=== PATIENT | male | born 1950 | race Caucasian/White ===

== ENCOUNTER 2023-07-10 09:51 | Day surgery (SDC) | payer MEDICARE, SELFPAY ==
[2023-07-10 10:08] VITALS: BP 153/95; PULSE 67; RESP 16; TEMP 36.3; O2SAT 99
[2023-07-10] MEDS: SODIUM CHLORIDE 0.9 % (FLUSH) 10 ML SYRINGE IVF (10:26)
[2023-07-10] MEDS: LACTATED RINGERS 1000 ML 1,000 ML 100 ML IV (10:27)
[2023-07-10 10:29] VITALS: BMI 32.9
[2023-07-10] MEDS: TETRACAINE 0.5% OPHTH 1 DROP EYE-LEFT (10:40)
[2023-07-10] MEDS: TETRACAINE 0.5% OPHTH 1 DROP EYE-RIGHT (10:40)
[2023-07-10] MEDS: TETRACAINE 0.5% OPHTH 2 DROP EYE-BOTH (11:06)
[2023-07-10] MEDS: BUPIVACAINE 0.5 %/EPI 1:200K 5 ML INJECTION (11:14)
--- NOTE | 2023-07-10 11:39 | P.ANES_ITS ---
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
--- NOTE | 2023-07-10 12:10 | W.PM.OPTPROC ---
Procedure Note Date of procedure: 07/10/23 Will [facility] bill your pro fee for this procedure?: Yes Procedure Description: SURGEON: Mary Hickman MD PREOPERATIVE DIAGNOSIS: Dermatochalasis, bilateral upper eyelids. POSTOPERATIVE DIAGNOSIS: Dermatochalasis, bilateral upper eyelids. NAME OF OPERATION: Bilateral upper eyelid blepharoplasty. ANESTHESIA: Local monitored anesthesia care. ESTIMATED BLOOD LOSS: Less than 2 cc. COMPLICATIONS: None. IMPLANTS: None. INDICATIONS: The patient is seen today for bilateral upper eyelid blepharoplasty. The patient complains of upper eyelids interfering with vision. I reviewed the visual cuevas and facial photographs. Surgery was indicated for functional improvement of vision. The risks, benefits and alternatives were discussed pre-operatively. The risks included pain, infection, bleeding, poor cosmetic result, scarring, asymmetry, need for further treatment including surgery, inability to close lids, dry eyes, decreased vision, loss of vision and loss of eye. The benefits included improvement of symptoms. The alternative was observation and no surgery. All questions were answered to the patient's satisfaction, and the patient elected to proceed with the bilateral upper eyelid blepharoplasty. Informed consent was obtained. PROCEDURE: In a sitting position, the upper eyelid crease was marked with a marking pen, and the pinch technique was used to determine the amount of upper eyelid skin to be excised. A calipers was used to measure for symmetry and to confirm an appropriate amount of remaining skin. The patient was taken to the operating room. 4 cc of anesthetic was injected subcutaneously along the full extent of each upper eyelid. This anesthetic was made with 1:1 of 2% lidocaine with epinephrine and 0.5% bupivacaine. Both eyes were prepped and draped in the usual sterile ophthalmic fashion. The following was performed on both the right and left upper eyelid: A #15 blade was used to incise the skin. Bishops and Liliam scissors were used to excise the skin and orbicularis muscle. Handheld cautery was used to achieve hemostasis. The eyelids were examined for symmetry. The skin was closed with a running 6-0 nylon suture. Erythromycin ointment was applied to the wounds. The patient tolerated the procedure well. DISPOSITION: The patient was sent to the recovery room and discharged to home in stable condition. The patient was given my postoperative instructions handout. The patient was told to ice as directed. The patient will apply erythromycin ophthalmic ointment to the eyelids three times a day until the sutures are removed, then for another three days. The patient will follow up in one week for suture removal or sooner as needed. The patient was instructed to call me or go to the emergency department with any sudden change, including dramatic loss of vision, excessive bleeding, redness or discharge from the incisions, or severe pain in the eye.
[2023-07-10 12:16] VITALS: BP 143/87; PULSE 65; RESP 16; TEMP 36.6; O2SAT 97
[2023-07-10 12:28] VITALS: BP 142/80; PULSE 66; RESP 16; O2SAT 97
[2023-07-10 12:44] VITALS: PULSE 67; RESP 16; O2SAT 97
--- NOTE | 2023-07-10 12:55 | W.ANESCHARGE ---
Anesthesia Charges Start Date/Time Anesthesia Start Date: 07/10/23 Anesthesia Start Time: 11:06 Stop Date/Time Anesthesia Stop Date: 07/10/23 Anesthesia Stop Time: 12:15 Summary Extremes of Age - Over 70 or under 1: MDA
== END 2023-07-10 12:58 | disposition home or self-care (01) ==
PROVIDERS: PCP Surgery; Visit Provider Ophthalmology
PROC: (CPT 15823; principal; 2023-07-10 10:00)
DX: H02.831 Dermatochalasis of right upper eyelid (principal); H02.834 Dermatochalasis of left upper eyelid; H53.8 Other visual disturbances
CPT/HCPCS: 15823; 00103; 82962; 99100; A9270; J2704; J3490; J7120

== ENCOUNTER 2024-03-06 08:46 | Outpatient (CLI) | payer MEDICARE, SELFPAY ==
--- OUTSIDE RECORDS SUMMARY | 2024-03-06 08:49 | XMS_ITS | Continuity of Care Document ---
Author Organization [place] - [facility], _[facility]aro Address [address] [place] [address] Care Team Providers Care Brake Adjuster Name Role Phone [facility] Primary Care Provider Assessment No assessment recorded. Plan of Treatment Reminders Order Date Submit Date Provider Last Modified By Organization Details Last Modified Time Details Appointments None recorded. Lab PSA, serum or plasma 2023 024 [email or web address] _lazaro, [facility] [place], [address], 14:15:39 Referral None recorded. Procedures None recorded. Surgeries None recorded. Imaging MRI, prostate, w/wo contrast 2023 024 [facility], [address] [place], [address], 14:40:33 Medication Orders None recorded. Patient TargetsNo targets recorded. Patient InstructionsNo instructions recorded. Reason for Referral None Reported. Results Created Date Observation Date Name Description Value Unit Range Abnormal Flag LastModifiedBy Organization Detail LastModifiedTime 03/02/20 24 03/02/2024 PSA, serum or plasm a PSA 12.0 ng/mL 0-4.0 NG/mL Not Available [facility] [address] [place], [address], 03/02/2024 13:54:12 Result Notes None recorded. Procedures Surgical History Date Name Laterality Status Provider Name and Address Organization Details Recorded Time PSA RESULTS completed Larisa meredith [facility] 03/02/2024 14:15:01 Bladder Scan completed Larisa meredith [facility] 03/02/2024 14:03:19 Imaging Results None recorded. Procedure Notes None recorded. Medical Equipment None Reported. Allergies Allergen ID Allergen Name Allergen Category Reaction Reaction Severity Criticality Documentation Date Start Date Code Code System Note Provider Name and Address Organization Details Recorded Time 039682 ciproflox acin medicatio n Not available Not available Not available 03/02/2024 2551 RxNorm Larisa meredith [facility] 4 14:03:59 Medications Name Sig Start Date Stop Date Status Note LastModified by Organization Details LastModified Time losartan 50 mg tablet TAKE 1 TABLET (50 MG) BY MOUTH ONCE DAILY. active Not Available Not Available No t Available atorvastati n 20 mg tablet TAKE 1 TABLET (20 MG) BY MOUTH AT BEDTIME. active Not Available Not Available No t Available betamethaso ne, augmented 0.05 % topical cream APPLY TOPICALLY TO AFFECTED AREA(S) TWO TIMES DAILY. DON''T USE FOR MORE THAN 2 WEEKS STRAIGHT ON ANY ONE AREA active Not Available Not Available No t Available atenolol 50 mg-chlortha lidone 25 mg tablet TAKE 1 TABLET BY MOUTH ONCE DAILY. active Not Available Not Available No t Available allopurinol 100 mg tablet TAKE 2 TABLETS (200 MG) BY MOUTH ONCE DAILY. active Not Available Not Available No t Available lancets active Not Available Not Avail able Not Available tamsulosin 0.4 mg capsule TAKE 1 CAPSULE (0.4 MG) BY MOUTH ONCE DAILY AFTER A MEAL. active Not Available Not Available No t Available glipizide ER 2.5 mg tablet, extended release 24 hr TAKE 1 TABLET BY MOUTH ONCE DAILY BEFORE A MEAL. active Not Available Not Available No t Available metformin 1,000 mg tablet TAKE 1 TABLET (1,000 MG) BY MOUTH TWO TIMES DAILY WITH MEALS. active Not Available Not Available No t Available albuterol sulfate HFA 90 mcg/actuati on aerosol inhaler INHALE 1-2 PUFFS BY MOUTH EVERY 4 HOURS IF NEEDED (COUGH). active Not Available Not Available No t Available sulindac 200 mg tablet Take 1 tablet twice a day by oral route. active Not Available Not Available No t Available Co Q-10 10 mg capsule Take by oral route. active Not Available Not Available No t Available Contour Next Test Strips TEST TWICE DAILY 2023 active Not Available Not Available Not Windy jaimes Paxlovid 300 mg (150 mg x 2)-100 mg tablets in a dose pack TAKE 2 NIRMATREL VIR 150 MG PINK-OVAL TABLETS AND 1 RITONAVIR 100 MG WHITE-OVA L TABLET TOGETHER TWICE DAILY FOR 5 DAYS. DATE OF SYMPTOM 03/02 completed Not Available Not Available Not Available Vitals Date Recorded Body height Body mass index (BMI) Body weight Provider Name and Address Organization Details Last Updated DateTime 03/02/2024 177.8 cm 31.6 kg/m2 24852.32 g Larisa Melchor [facility] 03/02/2024 14:02:39 Social History Question Answer Notes LastModified by Organizat ion Details LastModified Time Tobacco Smoking Status Former Smoker Larisa meredith [facility] 03/02/2024 14:05:03 What Is Your Level Of Alcohol Consumption? Moderate Information not available 03/02/2024 What Is Your Level Of Caffeine Consumption? Moderate Information not available 03/02/2024 When Did You Quit Smoking? 16+yearssincel astcigarette Information not available 03/02/2024 What Was The Date Of Your Most Recent Tobacco Screening? 03/02/2024 Information not available 03/02/2024 Sex: Unknown Functional Status None recorded. Mental Status None recorded. Family History Nothing Reported. Medical History No medical history recorded. Immunizations Vaccine Type Date Status Provider Name and Address Organization Details Recorded Time Influenza, adjuvanted, trivalent, PF 05/30/2018 completed Larisa meredith [facility] 03/02/2024 13:55:00 Influenza, adjuvanted, trivalent, PF 06/05/2019 completed Larisa meredith [facility] 03/02/2024 13:55:00 Influenza, adjuvanted, trivalent, PF 06/26/2017 completed Larisa meredith [facility] 03/02/2024 13:55:00 zoster recombinant 11/03/2019 completed Larisa meredith [facility] 03/02/2024 13:55:00 zoster recombinant 02/03/2020 completed Larisa Gray whittaker null, [facility] 03/02/2024 13:55:00 Influenza, high-dose, quadrivalent, PF 05/27/2023 completed Larisa Chanceen null, [facility] 03/02/2024 13:55:00 Influenza, high-dose, quadrivalent, PF 06/19/2022 completed Larisa Chanceen null, [facility] 03/02/2024 13:55:00 Influenza, adjuvanted, quadrivalent, PF 05/19/2021 completed Larisa Ronkelvinen null, [facility] 03/02/2024 13:55:00 Influenza, adjuvanted, quadrivalent, PF 06/02/2020 completed Larisa Chanceen null, [facility] 03/02/2024 13:55:00 COVID-19, mRNA, LNP-S, PF, 30 mcg/0.3 mL dose 11/04/2020 completed Larisa Chanceen null, [facility] 03/02/2024 13:55:00 COVID-19, mRNA, LNP-S, PF, 30 mcg/0.3 mL dose 11/25/2020 completed Larisa Chanceen null, [facility] 03/02/2024 13:55:00 COVID-19, mRNA, LNP-S, PF, 30 mcg/0.3 mL dose 01/30/2022 completed Larisa Chanceen null, [facility] 03/02/2024 13:55:00 COVID-19, mRNA, LNP-S, PF, 30 mcg/0.3 mL dose 06/15/2021 completed Larisa Ronkelvinen null, [facility] 03/02/2024 13:55:00 COVID-19, mRNA, LNP-S, bivalent, PF, 30 mcg/0.3 mL dose 05/29/2022 completed Larisa Ronkelvinen null, [facility] 03/02/2024 13:55:00 RSV, recombinant, protein subunit RSVpreF, adjuvant reconstituted, 0.5 mL, PF 08/14/2023 completed Larisa Ronkelvinen null, [facility] 03/02/2024 13:55:00 COVID-19, mRNA, LNP-S, PF, symone-sucrose, 30 mcg/0.3 mL 06/24/2023 completed Larisa Ronningen null, [facility] 03/02/2024 13:55:00 pneumococcal polysaccharide PPV23 09/05/2018 completed Larisa Ronningen null, [facility] 03/02/2024 13:55:00 pneumococcal polysaccharide PPV23 08/19/2003 completed Larisa Ronningen null, [facility] 03/02/2024 13:55:00 Tdap 05/27/2023 completed Larisa Ronningen null, [facility] 03/02/2024 13:55:00 Tdap 08/22/2012 completed Larisa Ronningen null, [facility] 03/02/2024 13:55:00 Novel [id number], all formulations 09/14/2009 completed Larisa Ronningen null, [facility] 03/02/2024 13:55:00 Pneumococcal conjugate PCV 13 10/17/2016 completed Larisa Ronningen null, [facility] 03/02/2024 13:55:00 zoster live 05/26/2014 completed Larisa Ronningen null, [facility] 03/02/2024 13:55:00 Influenza, high-dose, trivalent, PF 08/24/2016 completed Larisa Ronningen null, [facility] 03/02/2024 13:55:01 Influenza, split virus, trivalent, preservative 05/16/2011 completed Larisa Ronningen null, [facility] 03/02/2024 13:55:01 Influenza, split virus, trivalent, preservative 06/23/2011 completed Larisa Ronningen null, [facility] 03/02/2024 13:55:01 Influenza, split virus, trivalent, preservative 07/11/2012 completed Larisa Ronningen null, [facility] 03/02/2024 13:55:01 Influenza, split virus, trivalent, preservative 08/28/2010 completed Larisa Ronningen null, [facility] 03/02/2024 13:55:01 Influenza, split virus, trivalent, PF 06/18/2013 completed Larisa meredith, [facility] 03/02/2024 13:55:01 Influenza, split virus, trivalent, PF 07/27/2014 completed Larisa meredith, [facility] 03/02/2024 13:55:01 Influenza, split virus, trivalent, PF 08/15/2009 completed Larisa meredith, [facility] 03/02/2024 13:55:01 Influenza, split virus, quadrivalent, PF 06/17/2015 completed Larisa meredith, [facility] 03/02/2024 13:55:01 Past Encounters Encounter ID Performer Location Encounter Start Date Encounter Closed Date Diagnosis/Indication Diagnosis SNOMED-CT Code [id number] Domingo Rizo MD [facility] [address] [id number] 03/02/2024 13:27:59 03/02/2024 20:17:53 Prostate specific antigen above reference range [id number] Slowing of urinary stream 93192178 Nocturia [id number] Health Concerns Section Related Observation LastModified by Organization Detai ls LastModified Time None Recorded Concern Status LastModified by Organization Details LastModified Time None Recorded Payers Encounter Date Sequence Insurance Name Policy Number Policy Reeder Covered Member ID Reeder Member ID Guarantor Name 03/02/2024 1 [place] [facility] MEDIC[facility] COST [id number] Jimyerin Garzajose daniel [id number] Rishi Ellis 03/02/2024 2 MED[place] [employer] [facility] Rishi Ellis [id number] Rishi Ellis Notes Date Note Type Note Provider Name and Address Organization Details Recorded Time 03/02/2024 text/html HPI Notes: Mr. Ellis is a pleasant 73 year old gentleman who is referred to me by his primary care provider, Dr. Leobardo Crane, regarding elevated PSA. Patient has undergone PSA screening as part of his annual well visit and has been noted to be elevated. Patient had previously been seen by me in June 2021 at which time he elected to continue observing his PSA. Voiding symptoms: Weak urine stream, urinary frequency, nocturia Family history of prostate cancer: None PSA kinetics: 12.0 ng/mL (03/02/2024) 6.59 ng/mL (01/07/2024) 4.93 ng/mL (2022) 5.04 ng/mL (2021) 4.56 ng/mL (2015) Domingo Rizo MD [address], [address], [facility] 03/02/2024 20:17:50
--- OUTSIDE RECORDS SUMMARY | 2024-03-06 08:49 | XMS_ITS | Clinical Summary ---
Author Organization [facility] Address [place], [place] [address] Care Team Providers Care Public Health Educator Name Role Phone Leobardo Crane MD Primary Care Provider [phone] Allergies Active Allergy Reactions Criticality Noted Date Comments Amoxicillin-Pot Clavulanate Hives 10/31/2020 Indomethacin 04/22/2007 gi upset Lisinopril Cough 11/07/2009 Naproxen Rash 04/22/2007 Simvastatin Other - Describe In Comment Field 06/29/2009 Gastroesophogeal reflux disease Medications Medication Sig Dispensed Refills Start Date End Date Status ASPIRIN 81 MG TAB, DELAYED RELEASEIndications:T ype II or unspecified type diabetes mellitus without mention of complication, uncontrolled take 1 tablet (81 mg) by oral route once daily 0 04/23/2007 Active Coenzyme Q10 (Co Q-10) 10 mg cap Take 10 mg by mouth 2 times daily. Active CPAPIndications:TEENA (obstructive sleep apnea) CPAP machine for home use at pressure 5-15 cmw, full face mask x1/3month with a full face cushion x1/mo 1 Each 11 12/12/2021 Active lancets (OneTouch UltraSoft Lancets)Indications: Type 2 diabetes mellitus with stage 1 chronic kidney disease, without long-term current use of insulin (HC) Test 2 times per day. Wait until they call for this. 100 Each 3 04/21/2022 Active sulindac (CLINORIL) 200 mg tabletIndications:Go uty arthropathy TAKE ONE TABLET BY MOUTH TWICE DAILY WITH FOOD NEEDED 30 Tablet 05/28/2022 Active betamethasone, augmented dipropianate 0.05% (DIPROLENE AF) 0.05 % creamIndications:Chr onic eczema Apply topically to affected area(s) two times daily. Don't use for more than 2 weeks straight on any one area 50 g 10/08/2023 Active albuterol HFA (PRO-AIR; VENTOLIN; PROVENTIL) 90 mcg/actuation inhalerIndications:P ost-infection bronchospasm Inhale 1-2 Puffs by mouth every 4 hours if needed (cough). 8.5 g 3 01/07/2024 Active allopurinoL (ZYLOPRIM) 100 mg tabletIndications:Id iopathic gout, unspecified chronicity, unspecified site Take 2 Tablets (200 mg) by mouth once daily. 180 Tablet 3 01/07/2024 Active atenolol-chlorthalid one, 50-25 mg, (TENORETIC 50) 50-25 mg tabletIndications:Es sential hypertension Take 1 Tablet by mouth once daily. 90 Tablet 3 01/07/2024 Active atorvastatin (LIPITOR) 20 mg tabletIndications:Ty pe 2 diabetes mellitus with stage 1 chronic kidney disease, without long-term current use of insulin (HC) Take 1 Tablet (20 mg) by mouth at bedtime. 90 Tablet 3 01/07/2024 Active colchicine (COLCRYS, colchicine,) 0.6 mg tabletIndications:Go uty arthropathy Take 1 Tablet (0.6 mg) by mouth 2 times daily if needed for Gout Pain. 90 Tablet 3 01/07/2024 Active losartan (COZAAR) 50 mg tabletIndications:Es sential hypertension Take 1 Tablet (50 mg) by mouth once daily. 90 Tablet 3 01/07/2024 Active metFORMIN (GLUCOPHAGE) 1,000 mg tabletIndications:Ty pe 2 diabetes mellitus with stage 1 chronic kidney disease, without long-term current use of insulin (HC) Take 1 Tablet (1,000 mg) by mouth two times daily with meals. 180 Tablet 01/07/2024 Active tamsulosin (FLOMAX) 0.4 mg capsuleIndications:B PH without urinary obstruction Take 1 Capsule (0.4 mg) by mouth once daily after a meal. 90 Capsule 3 01/07/2024 Active glipiZIDE extended-release (GLUCOTROL XL) 2.5 mg Extended-Release tabletIndications:Ty pe 2 diabetes mellitus with stage 1 chronic kidney disease, without long-term current use of insulin (HC) Take 1 Tablet (2.5 mg) by mouth once daily before a meal. 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 Encounters Date Type Department Care Team Description 01/20/2024 Orders Only [facility] Scanner 1 scan: (1-Ord) INCOMING RECORDS-DIABETIC EYE, [facility], 01/20/2024 01/14/2024 Refill [facility] [address] [place] [address] Leobardo Crane MD Refill Request (Contour Next Test Strips) 01/07/2024 8:50 AM CDT Office Visit [facility] [address] [place] [address] Leobardo Crane MD Lab; Medicare ANNUAL (subsequent) Visit (73 year old male); Diabetes 01/07/2024 Telephone [facility] [address] [place] [address] Tan Martínez MD Pre Procedure 01/07/2024 Travel 12/16/2023 Refill [facility] [address] [place] [address] Leobardo Crane MD Refill Request (Atorvastatin) from Last 3 Months Immunizations Name Administration Dates Next Due COVID-19 vaccine (YABUY NTech 30mcg/0.3mL) PETER MUSE 11/25/2020,11/04/2020 Influenza A (H1N1), Inactivated 09/14/2009 Influenza, High-dose Inactivated 06/02/2020,08/03 Influenza, High-dose Quadriv alent Inactivated 05/27/2023,06/19/2022 Influenza, IIV3 (Age 6-35 mos) 07/27/2014,2012,08/15/2009 Influenza, IIV3 (Age >=3 years) 07/11/20 12,06/23/2011,05/16/2011,08/28,08/15/2009,06/27/2008,07/01/2007 Influenza, IIV4 06/17/2015 Influenza, Inactivated AIIV4 (Age 65+ Years) Preserv Free 05/19/2021 Influenza, Inactivated IIV3 (Age 65+ Years) Preserv Free 06/05/2019,05/30/2018,06/26/2017 Pneumococcal Poly,23-Valent (Pneumovax) 09/05/2018,08/19/2003 Pneumococcal conj 13-Valent (Prevnar 13) 10/17/2016 RSV, Recombinant ADJ Reconst ituted (Arexvy 120MCG/0.5mL) 08/14/2023 Td (Age >=7 Years) 11/16/2002 Tdap 05/27/2023,08/22/2012 Zoster (Shingrix-RZV, recombinant) 02/03/2020, Zoster (Zostavax-ZVL, live) 05/26/2014 Family History Medical History Relation Name Comments Asthma Brother 1 Other Brother 2 Renal failure Other cancer Brother 2 of Meningi tis at 62. Diabetes Father Heart Disease Father [place] at 76, Blood Disease Mother Blood Cancer, of Pneumonia at age 77 Diabetes Mother Hyperlipidemia Mother Hypertension Mother Diabetes Sister Diverticulitis Sister Relation Name Status Comments Brother 1 Brother 2 Father Mother Sister Social History Tobacco Use Types Packs/Day Years Used Date Smoking Tobacco: Former Cigarettes 2 13 0 04/23/1967 - 04/23/1980 Smokeless Tobacco: Never Tobacco Cessation:Counseling Given: Yes Alcohol Use Standard Drinks/Week Comments Yes 0 (1 standard drink = 0.6 oz pur e alcohol) once a week, 1-2 beers PHQ-2 Answer Date Recorded PHQ-2 TOTAL SCORE 0 01/07/2024 Social Connections Answer Date Recorded Frequency of Communication with Friends and Fami ly 0 10/07/2023 Financial Resource Strain Answer Date R ecorded Difficulty of Paying Living Expenses 3 10/07/2023 Difficulty of Paying Living Expenses Not on file 10/07/2023 Food Insecurity Answer Date Recorded Worried About Running Out of Food in the Last Ye ar 1 10/07/2023 Transportation Needs Answer Date Record ed Lack of Transportation (Medical) 1 10/07/2023 Housing Stability Answer Date Recorded Unable to Pay for Housing in the Last Year 1 10/07/2023 Sex and Gender Information Value Date Recorded Sex Assigned at Not on file Gender Identity Not on file Sexual Orientation Not on file Obstetrics History Last Filed Vital Signs Vital Sign Reading Time Taken Comments Blood Pressure 128/87 01/07/2024 9:03 AM CDT Pulse 100 01/07/2024 9:03 AM CDT Temperature 36.3 ??C (97.4 ??F) 01/07/2024 9:03 AM CD T Respiratory Rate 16 07/18/2021 1:07 PM LUGGAGE REPAIRER Oxygen Saturation 98% 01/07/2024 9:03 AM CDT Inhaled Oxygen Concentration - - Weight 101.7 kg (224 lb 3.2 oz) 01/07/2024 9:03 AM CDT Height 177.4 cm (5' 9.84) 01/07/2024 9:03 AM CD T Body Mass Index 32.31 01/07/2024 9:03 AM CDT Plan of Treatment Upcoming Encounters Date Type Department Care Team (Late st Contact Info) Description 04/09/2024 9:00 AM CDT Office Visit [facility] [address] [place] [address] Leobardo Crane MD [address] [place] [address] Health Maintenance Due Date Last Done Comments Colonoscopy through age 75 01/02/202201/02, 09/13/2017, 05/22/2007 COVID-19 vaccine series ( season) 2023 06/24/2023, 05/29/2022, 01/30/2022, Additional history exists Influenza for age 65+ 05/03/2024 05/27/2023 , 06/19/2022, 05/19/2021, Additional history exists BMI (ht and wt on same day) for age 18+ 01/06/2025 01/07/2024, 11/12/2022, 08/28/2022, Additional history exists Depression screening for age 12+ 01/06/2025 01/07/2024, 01/07/2024, 10/08/2023, Additional history exists Medicare Wellness for age 65+ 01/07/2025, 08/28/2022, 08/22/2021, Additional history exists Lipids for age 45-75 06/18/2028 06/18/2023, 11/08/2022, 08/22/2021, Additional history exists Tetanus booster 05/27/2033 05/27/2023, 08/03, 11/16/2002 Hepatitis C screening for ag e 18-79 Completed 10/05/2009 Pneumococcal series for age 65+ Completed 09/05/2018, 10/17/2016, 08/19/2003 Zoster (shingles) series for age 50+ Completed 02/03/2020, 11/03/2019, 05/26/2014 AAA screening age 65-74 Completed 12/14/2021 Tdap Completed 05/27/2023, 08/22/2012 Medical Devices Implanted Type Area Medicine Aide Device Identifier Shelf Expiration Date Model / Serial / Lot Stent Sinus 8mm Propel Contour Bioabsorb - [id number] Implanted:Qty: 2 on 01/04/2021 by Lucinda Rae MD at [facility] Bilateral : [employer] 05/31/2022 [id number] / / [id number] Procedures Procedure Name Priority Date/Time Associated Diagnosis Comments SCAN-EYE EXAM 01/20/2024 12:00 AM CDT URIC ACID Add On 01/07/2024 8:47 AM CDT Gouty arthropathy PSA TOTAL (DIAGNOSTIC) Routine 01/07/2024 8:47 AM CDT Elevated PSA BASIC METABOLIC PANEL Routine 01/07/2024 8:47 AM CDT Type 2 diabetes mellitus with stage 1 chronic kidney disease, without long-term current use of insulin (HC) HEMOGLOBIN A1C Routine 01/07/2024 8:47 AM CDT Type 2 diabetes mellitus with stage 1 chronic kidney disease, without long-term current use of insulin (HC) LIPID PANEL W REFLEX MEASURED LDL Routine 06/18/2023 3:34 PM CDT Chronic kidney disease, stage I Type 2 diabetes mellitus with ESRD (end-stage renal disease) (HC) US ABD AORTA SCREENING Routine 12/14/2021 8:29 AM CDT Screening for AAA (aortic abdominal aneurysm) SCAN-COLONOSCOPY 01/02/2019 8:00 AM CDT ANTI HCV Routine 10/05/2009 8:04 AM LUGGAGE REPAIRER Elevated LFT's Fatty Liver from Last 3 Months or Most Recently Relevant to Health Maintenance Results * SCAN-EYE EXAM (01/20/2024 12:00 AM CDT) Scanner OTHER * URIC ACID (01/07/2024 8:47 AM CDT) URIC ACID 6.3 3.4 - 7.0 mg/dL 01/07/2024 7:02 PM CDT [facility] Blood BLOOD SPECIMEN / Unknown Venipuncture / Unknown 01/07/2024 8:47 AM CDT 01/07/2024 8:47 AM CDT Leobardo Crane MD CHEMISTRY [facility] [address] * (ABNORMAL) PSA TOTAL (DIAGNOSTIC) (01/07/2024 8:47 AM CDT) PSA TOTAL (DIAGNOSTIC) 6.59(H) <4.00 ng/mL 01/07/2024 7:40 PM CDT [facility] Blood BLOOD SPECIMEN / Unknown Venipuncture / Unknown 01/07/2024 8:47 AM CDT 01/07/2024 8:47 AM CDT Narrative [facility] - 01/07/2024 7:40 PM CDT The test method changed on 02/26/2023. If this test has been used for serial monitoring, rebaselining is recommended. Rebaselining consists of 2 measurements, collected 3-6 weeks apart. The Radha Elecsys total PSA assay is an electrochemiluminescence immunoassay ECLIA performed on the Radha Geoffrey e immunoassay analyzers. Values obtained with different assay methods may be different and cannot be used interchangeably. Leobardo Crane MD CHEMISTRY [facility] [address] [place] [address], * (ABNORMAL) HEMOGLOBIN A1C MONITORING (POCT) (01/07/2024 8:47 AM CDT) HEMOGLOBIN A1C MONITORING (POCT) 7.8(H) <=6.4 % 01/07/2024 8:57 AM CDT [facility] Blood BLOOD SPECIMEN / Unknown Venipuncture / Unknown 01/07/2024 8:47 AM CDT 01/07/2024 8:47 AM CDT Narrative [facility] - 01/07/2024 8:57 AM CDT ? (<=6.9%) ? Indicates good control ? (7.0% to 7.9%) ? Indicates fair control ? (>=8.0%) ? Indicates poor control ?? NOTE: ??These thresholds are guidelines and ?individual targets may vary. Falsely low levels may be seen with: Recent Transfusion, Recent Significant Blood Loss, Hemolytic Diseases, or Falsely elevated levels may be seen with: Untreated Anemias, Splenectomy ? Leobardo Crane MD CHEMISTRY [facility] [address] [place] [address], * (ABNORMAL) BASIC METABOLIC PANEL (01/07/2024 8:47 AM CDT) Pathologist [facility] SODIUM 137 136 - 145 mmol/L 01/07/2024 7:02 PM CDT [facility] POTASSIUM 4.4 3.5 - 5.1 mmol/L 01/07/2024 7:02 PM [facility] CHLORIDE 98 98 - 107 mmol/L 01/07/2024 7:02 PM T [facility] CO2,TOTAL 27 22 - 29 mmol/L 01/07/2024 7:02 PM [facility] ANION GAP 12 5 - 18 01/07/2024 7:02 PM [facility] GLUCOSE 250(H) 70 - 99 mg/dL 01/07/2024 7:02 PM [facility] CALCIUM 9.6 8.8 - 10.2 mg/dL 01/07/2024 7:02 PM T [facility] BUN 25(H) 8 - 23 mg/dL 01/07/2024 7:02 PM [facility] CREATININE 1.06 0.70 - 1.20 mg/dL 01/07/2024 7:02 PM [facility] BUN/CREAT RATIO 24(H) 10 - 20 7:02 PM [facility] eGFR 74(L) >90 mL/min/1.7 3m2 01/07/2024 7:02 PM CDT [facility] Comment:As of 2021, eG FR is calculated by the CKD-EPI creatinine equation without race adjustment. ??eGFR can be influenced by muscle mass, exercise, and diet. ??The reported eGFR is an estimation only and is only applicable if the renal function is stable. Blood BLOOD SPECIMEN / Unknown Venipuncture / Unknown 01/07/2024 8:47 AM CDT 01/07/2024 8:47 AM CDT Leobardo Crane MD CHEMISTRY [facility] [address] [place] [address], * (ABNORMAL) LIPID PANEL W REFLEX MEASURED LDL (06/18/2023 3:34 PM CDT) CHOLESTEROL,TOTAL 104 100 - 199 mg/dL 06/19/2023 7:44 AM T [facility] Comment: Cholesterol, Total Reference Ranges Desirable <200 mg/dL Borderline 200-239 mg/dL High >=240 mg/dL TRIGLYCERIDES 155(H) <150 mg/dL 06/19/2023 7:44 AM CDT [facility] HDL CHOLESTEROL 30(L) >40 mg/dL 7:44 AM T [facility] NON-HDL CHOLESTEROL 74 <145 mg/dl 06/19/2023 7:44 AM T [facility] CHOL/HDL RATIO 3.47 <4.50 06/19/2023 7:44 AM CDT [facility] LDL CHOLESTEROL 43 <=130 mg/dL 06/19/2023 7:44 AM T [facility] VLDL CHOLESTEROL 31(H) <=30 mg/dL 06/19/2023 7:44 AM T [facility] PROVIDER ORDERED STATUS RANDOM 06/19/2023 7:44 AM T [facility] Blood BLOOD SPECIMEN / Unknown Venipuncture / Unknown 06/18/2023 3:34 PM CDT 06/18/2023 3:45 PM CDT Leobardo Crane MD CHEMISTRY [facility] [address] [place] [address], [place] * US ABD AORTA SCREENING [[id number]] (12/14/2021 8:29 AM CDT) Anatomical Region Laterality Modality Abdomen, AORTA Ultrasound 12/14/2021 3:16 PM CDT Impressions 12/14/2021 3:16 PM CDT No evidence of abdominal aortic aneurysm. Dictated by Chino Thomson MD @ Dec 14 2021 ??3:16PM (Electronically Signed) ?? Narrative 12/14/2021 3:16 PM CDT For Patients: ??As a result of the Cures Act, medical imaging exams and procedure reports are released immediately into your electronic medical record. ??You may view this report before your referring provider. ??If you have questions, please contact your health care provider. INDICATION: Screening for AAA (abdominal aortic aneurysm) COMPARISON: none TECHNIQUE: Blackwell scale and color Doppler images were acquired of the abdominal aorta and iliac arteries. FINDINGS: Sonographic imaging demonstrates atherosclerotic changes. Proximally, the aorta measures 2.8 x 2.8 cm in diameter, mid 2.5 x 2.5 cm, and distally tapers to a measurement of 2.4 x 2.2 cm. ??The common iliac arteries are patent and measure 1.6 x 1.6 cm on the right and 1.5 x 1.6 cm in diameter on the left. ??There are no suspicious periaortic masses. Procedure Note Chino Thomson MD - 12/14/2021 For Patients: As a result of the Cures Act, medical imagingexams and procedure reports are released immediately into your electronicmedical record. You may view this report before your referring provider.If you have questions, please contact your health care provider. INDICATION: Screening for AAA (abdominal aortic aneurysm) COMPARISON: none TECHNIQUE: Blackwell scale and color Doppler images were acquired of the abdominal aortaand iliac arteries. FINDINGS: Sonographic imaging demonstrates atherosclerotic changes. Proximally, theaorta measures 2.8 x 2.8 cm in diameter, mid 2.5 x 2.5 cm, and distallytapers to a measurement of 2.4 x 2.2 cm. The common iliac arteries arepatent and measure 1.6 x 1.6 cm on the right and 1.5 x 1.6 cm in diameteron the left. There are no suspicious periaortic masses. IMPRESSION: No evidence of abdominal aortic aneurysm. Dictated by Chino Thomson MD @ Dec 14 2021 3:16PM (Electronically Signed) Leobardo Crane MD US * SCAN-COLONOSCOPY (01/02/2019 8:00 AM CDT) Narrative Procedure Note Rosario Rosas MD - 01/02/2019 7:02 AM CDT [address], [address], [place] [address] Patient Name: Rishi Ellis Gender: Male Exam Date: 01/02/2019 Visit Number: [id number] Age: 68 Years Date of : 1950 Attending MD: Rosario Rosas MD Medical Record#: [id number] Procedure: Colonoscopy Indications: Previous adenomatous polyp(s) Referring MD: Konstantin Chou MD Primary MD: Konstantin Chou MD Medications: Admitting Medications: 0.9% Normal Saline at [facility] Intra Procedure Medications: Patient received monitored anesthesia care. Complications: No immediate complications Procedure: An examination of the heart and lungs was performed and found to be withinacceptable limits. The patient was therefore deemed a reasonablecandidate for endoscopy and sedation. The risks and benefits of the procedure were explained to the patient.After obtaining informed consent, the patient received monitoredanesthesia care and I passed the scope without difficulty via the rectum to the cecum. The appendiceal orificeand ic valve were identified. The scope was retroflexed during theexamination The quality of the prep was good (Miralax/Gatorade DoublePrep). This was a complete examination throughout the entire colon. Findings: Polyp location: transverse colon. Quantity: 1. Size: 4 mm. Polyp shape:sessile. Maneuver: polypectomy was performed with a cold snare. Removal: complete. Retrieval: complete. Bleeding: none. Polyp location: transverse colon. Quantity: 2. Size: 2-3 mm. Polypshape: sessile. Maneuver: polypectomy was performed with a cold biopsy forceps . Removal: complete. Retrieval: complete. Bleeding: none. Polyp location: sigmoid. Quantity: 1. Size: 2 mm. Polyp shape:sessile. Maneuver: polypectomy was performed with a cold biopsy forceps . Removal: complete. Retrieval: complete. Bleeding: none. Diverticulosis. Location: - transverse colon - descending colon -sigmoid. Description: moderate. Size: medium. Quantity:several. No inflammation present. Hemorrhoids. Internal hemorrhoids without bleeding. Impression: Colorectal polyps Diverticulosis of colon without diverticulitis Hemorrhoids, internal Preliminary Plan: Repeat colonoscopy in 3 years Pathology Results: A: COLON, TRANSVERSE, POLYPS: 1. Tubular adenomas (2) and hyperplastic polyp (1) 2. Negative for high grade dysplasia 3. Per the colonoscopy report: a. Polyp sizes: 2 mm - 4 mm b. Resection: Complete c. Retrieval: Complete B: COLON, SIGMOID, POLYP: 1. Hyperplastic polyp MICROSCOPIC A: Performed. Deeper levels were examined. B: Performed SPECIAL STAINING/DEEPER A: Deeper Electronically signed by: Jay Talbot MD Orders Instruction(s)/Education: Instruction/Education Timeframe Assessment Colon Cancer Prevention K63.5 Colon Polyps K63.5 Diverticulosis/Diverticulitis K63.5 Hemorrhoids K63.5 High Fiber Diet K63.5 Final Plan: Return for a colonoscopy in 3 years. We will attempt to contact you at appropriate intervals via U.S. mail. Wemay not be able to find you or contact you at that time, therefore youshould know that the responsibility for following our recommendation restswith you. If you don't hear from us at the time your procedure is due,please contact our office to schedule an appointment. If your contactinformation should change, please contact our office so that we can updateyour record. _Electronically signed by: Rosario Rosas MD 01/02/2019 cc: Konstantin Chou MD cc: Konstantin Chou MD Rosario Rosas MD OTHER * ANTI HCV (10/05/2009 8:04 AM LUGGAGE REPAIRER) ANTI HCV Non-reacti ve [facility] Blood specimen (specimen) BLOOD SPECIMEN / Unknown 10/05/2009 8:04 AM LUGGAGE REPAIRER 10/05/2009 7:52 AM LUGGAGE REPAIRER Tan Martínez MD SEND OUTS [facility] INTERNAL ZIP [id number] [place] [id number] from Last 3 Months or Most Recently Relevant to Health Maintenance Advance Directives Documents on File Type Date Recorded Patient Orthotic And Prosthetic Technician Expl anation Healthcare Directive 05/27/2017 10:02 AM A Elías [place], 05/09/17 * Full Code (Latest Code Status on File) Date Activated Date Inactivated Comments 01/04/2021 6:10 AM 01/04/2021 12:40 PM Question Answer Comments Code Status Discussion: Discussed * Full Code Date Activated Date Inactivated Comments 05/14/2017 11:54 AM 05/14/2017 4:23 PM Care Teams Public Health Educator Relationship Specialty Start Date End Date Leobardo Crane MD [address] [place] [address] PCP - General Family Practice 06/29/21
--- OUTSIDE RECORDS SUMMARY | 2024-03-06 08:49 | XMS_ITS | Data Portability ---
Author Organization [place] [facility] Address [address] [place] [address] Care Team Providers Care Fancy Needleworker Name Role Phone [facility] Primary Care Provider Assessment No assessment recorded. Plan of Treatment Reminders Order Date Submit Date Provider Last Modified By Organization Details Last Modified Time Details Appointments None recorded. Lab PSA, serum or plasma 2023 024 [email or web address] [facility], [address] [place], [address], 14:15:39 Referral None recorded. Procedures None recorded. Surgeries None recorded. Imaging MRI, prostate, w/wo contrast 2023 024 [facility], [address] [place], [address], 14:40:33 Medication Orders None recorded. Patient TargetsNo targets recorded. Patient InstructionsNo instructions recorded. Reason for Referral None Reported. Results Created Date Observation Date Name Description Value Unit Range Abnormal Flag LastModifiedBy Organization Detail LastModifiedTime 03/02/20 24 03/02/2024 PSA, serum or plasm a PSA 12.0 ng/mL 0-4.0 NG/mL Not Available [facility] [address] [place], [address], 03/02/2024 13:54:12 Result Notes None recorded. Procedures Surgical History Date Name Laterality Status Provider Name and Address Organization Details Recorded Time PSA RESULTS completed Larisa meredith G[facility] 03/02/2024 14:15:01 Bladder Scan completed GELY Zhu [facility] 03/02/2024 14:03:19 Imaging Results None recorded. Procedure Notes None recorded. Medical Equipment None Reported. Allergies Allergen ID Allergen Name Allergen Category Reaction Reaction Severity Criticality Documentation Date Start Date Code Code System Note Provider Name and Address Organization Details Recorded Time 074888 ciproflox acin medicatio n Not available Not available Not available 03/02/2024 2551 [facility] GELY Zhu [facility] 14:03:59 Medications Name Sig Start Date Stop [...] active Not Available Not Available Not Windy theodore Paxlovid 300 mg (150 mg x 2)-100 [...] Updated DateTime 03/02/2024 177.8 cm 31.6 kg/m2 15782.32 g Larisa Melchor [facility] 03/02/2024 14:02:39 Social History Question Answer Notes LastModified by Organizat ion Details LastModified Time Tobacco Smoking Status Former Smoker Larisa meredith [facility] 03/02/2024 14:05:03 What Is Your Level [...] adjuvanted, trivalent, PF 05/30/2018 completed Larisa meredith [facility] 03/02/2024 13:55:00 Influenza, adjuvanted, trivalent, PF 06/05/2019 completed Larisa meredith [facility] 03/02/2024 13:55:00 Influenza, adjuvanted, trivalent, PF 06/26/2017 completed Larisa meredith [facility] 03/02/2024 13:55:00 zoster recombinant 11/03/2019 completed Larisa meredith [facility] 03/02/2024 13:55:00 zoster recombinant 02/03/2020 completed Larisa Gray oronaen null, [facility] 03/02/2024 13:55:00 Influenza, high-dose, quadrivalent, PF 05/27/2023 completed Larisa Ronkelvinen null, [facility] 03/02/2024 13:55:00 Influenza, high-dose, quadrivalent, PF 06/19/2022 completed Larisa Ronkelvnien null, [facility] 03/02/2024 13:55:00 Influenza, adjuvanted, quadrivalent, PF 05/19/2021 completed Lraisa Ronkelvinen null, [facility] 03/02/2024 13:55:00 Influenza, adjuvanted, quadrivalent, PF 06/02/2020 completed Larisa Chanceen null, [facility] 03/02/2024 13:55:00 COVID-19, mRNA, LNP-S, PF, 30 mcg/0.3 mL dose 11/04/2020 completed Larisa Chanceen null, [facility] 03/02/2024 13:55:00 COVID-19, mRNA, LNP-S, PF, 30 mcg/0.3 mL dose 11/25/2020 completed Larisa Chanceen null, [facility] 03/02/2024 13:55:00 COVID-19, mRNA, LNP-S, PF, 30 mcg/0.3 mL dose 01/30/2022 completed Larisa Ronkelvinen null, [facility] 03/02/2024 13:55:00 COVID-19, mRNA, LNP-S, PF, 30 mcg/0.3 mL dose 06/15/2021 completed Larisa Ronkelvinen null, [facility] 03/02/2024 13:55:00 COVID-19, mRNA, LNP-S, bivalent, PF, 30 mcg/0.3 mL dose 05/29/2022 completed Larisa Ronkelvinen null, [facility] 03/02/2024 13:55:00 RSV, recombinant, protein subunit RSVpreF, adjuvant reconstituted, 0.5 mL, PF 08/14/2023 completed Larisa Ronkelvinen null, [facility] 03/02/2024 13:55:00 COVID-19, mRNA, LNP-S, PF, symone-sucrose, 30 mcg/0.3 mL 06/24/2023 completed Larisa Ronningen null, [facility] 03/02/2024 13:55:00 pneumococcal polysaccharide PPV23 09/05/2018 completed Larisa Ronningen null, [facility] 03/02/2024 13:55:00 pneumococcal polysaccharide PPV23 08/19/2003 completed Larisa Ronningen null, [facility] 03/02/2024 13:55:00 Tdap 05/27/2023 completed Larisa Ronningen null, [facility] 03/02/2024 13:55:00 Tdap 08/22/2012 completed Larisa Ronningen null, [facility] 03/02/2024 13:55:00 Novel [id number], all formulations 09/14/2009 completed Larisa Ronningen null, [facility] 03/02/2024 13:55:00 Pneumococcal conjugate PCV 13 10/17/2016 completed Larisa Ronningen null, [facility] 03/02/2024 13:55:00 zoster live 05/26/2014 completed Larisa Ronningen null, [facility] 03/02/2024 13:55:00 Influenza, high-dose, trivalent, PF 08/24/2016 completed Larisa Ronningen null, [facility] 03/02/2024 13:55:01 Influenza, split virus, trivalent, preservative 05/16/2011 completed Larisa Ronningen null, [facility] 03/02/2024 13:55:01 Influenza, split virus, trivalent, preservative 06/23/2011 completed Larisa Ronningen null, [facility] 03/02/2024 13:55:01 Influenza, split virus, trivalent, preservative 07/11/2012 completed Larisa Ronningen null, [facility] 03/02/2024 13:55:01 Influenza, split virus, trivalent, preservative 08/28/2010 completed Larisa Ronningen null, [facility] 03/02/2024 13:55:01 Influenza, split virus, trivalent, PF 06/18/2013 completed Larisa meredith, [facility] 03/02/2024 13:55:01 Influenza, split virus, trivalent, PF 07/27/2014 completed Larisa meredith, [facility] 03/02/2024 13:55:01 Influenza, split virus, trivalent, PF 08/15/2009 completed Larisa meredith, [facility] 03/02/2024 13:55:01 Influenza, split virus, quadrivalent, PF 06/17/2015 completed Larisa meredith, [facility] 03/02/2024 13:55:01 Past Encounters Encounter ID Performer Location Encounter Start Date Encounter Closed Date Diagnosis/Indication Diagnosis SNOMED-CT Code [id number] Domingo Rizo MD [facility] [address] [id number] 03/02/2024 13:27:59 03/02/2024 20:17:53 Prostate specific antigen above reference range 518800593 Slowing of urinary stream 53229265 Nocturia [id number] Health Concerns Section Related Observation LastModified by Organization Detai ls LastModified Time None Recorded Concern Status LastModified by Organization Details LastModified Time None Recorded Advance Directives Directive None Recorded Payers Encounter Date Sequence Insurance Name Policy Number Policy Reeder Covered Member ID Reeder Member ID Guarantor Name 03/02/2024 1 [place] [employer] [place]ICARE COST [id number] Rishi Ellis [id number] Rishi Ellis 03/02/2024 2 [place] [employer] [facility] Rishi Ellis [id number] Rishi Ellis Notes Date Note Type [...] (2021) 4.56 ng/mL (2015) Domingo Rizo MD [address],[facility] [address], [place], [address], [facility] 03/02/2024 20:17:50
--- OUTSIDE RECORDS SUMMARY | 2024-03-06 08:49 | XMS_ITS | Continuity of Care Document ---
Author Organization [facility] Address [address] [address] [place] [address] Phone Care Team Providers Care Contamination Consultant Name Role Phone Aries Sotelo MD Unavailable Unavailabl e Allergies, Adverse Reactions, Alerts Substance Reaction Status Criticality simvastatin Active No Information lisinopril Active No Information naproxen Active No Information INDOMETHACIN SODIUM Active No Infor mation indomethacin Active No Information Medications Medication Instructions Dosage Effective Dates (start - stop) Status Comments metformin 1,000 mg tablet take 1 tablet by oral route 2 times every day with morning and evening meals 1000 MG - Active miconazole nitrate 2 % topical cream apply by topical route every day to the affected area(s) in the morning and evening Not Available - Active sulindac 200 mg tablet take 1 tablet by oral route 2 times every day with food 200 MG - Active ProAir RespiClick 90 mcg/actuation breath activated inhale 2 puff by inhalation route every 4 - 6 hours as needed 180 MCG - Active betamethasone dipropionate 0.05 % topical cream apply by topical route every day a thin layer to the affected area(s) 0.00 - Active atenolol 50 mg-chlorthalidone 25 mg tablet take 1 tablet by oral route every day 1.00 tablet - Active atorvastatin 10 mg tablet take 1 tablet by oral route every day 10 MG - Active colchicine 0.6 mg tablet take 1 Tablet by oral route 2 times every day as directed and needed 0.6 MG - Active losartan 25 mg tablet take 1 tablet by oral route every day 25 MG - Active Fish Oil Concentrate 1,000 mg capsule take 1 by Oral route every day 1 - Active amlodipine 5 mg tablet take 1 tablet by oral route every day 5 MG - Active Aspir-81 81 mg tablet,delayed release take 1 tablet by oral route every day - Active coenzyme Q10 100 mg capsule take 1 Capsule by Oral route every day 1 Capsule - Active Procedures Procedure Date Colonoscopy Flex; W/remov Les- 19 Colonoscopy Flex; W/bx 1/mx Level Iv-surg Path Gross/micro 19 Adenoma(s), Other Neoplasm Detected Duri ng Screen Colonoscopy Flex; W/remov Les- 18 Level Iv-surg Path Gross/micro 18 Advance Directives Directive Yes / No Effective Date File Name No Information Encounters Encounter Description Practice Location Reason(s) For Visit Diagnoses Date Provider Providers Copied on Encounter [facility] [place], [address] [address], [place], [id number], [place] tel:[phone] [facility] No Information Reinier Chris. [address], [facility] [address], [place], [id number] , [place]. tel:[phone] [facility] [place], [address] [address], [place], [id number], [place] tel:[phone] [facility] Colorectal polypsDiverticulosi s of colon without diverticulitisHemor rhoids, internalPersonal history of colonic polypsEncounter for screening for malignant neoplasm of colonBenign neoplasm of transverse colonEncounter for screening for malignant neoplasm of colonPolyp of colonBenign neoplasm of transverse colonPersonal history of colonic polyps [address]. [address], [address], [facility] [place], [id number] , [place]. tel:[phone] Referring Provider: Konstantin Muniz, [address] [place] [address], [place], [address]. tel:[phone] [facility] [place], [address] [address], [place], [id number], [place] tel:[phone] [facility] Colorectal polypsDiverticulosi s of colon without diverticulitisEncou nter for screening for malignant neoplasm of colonBenign neoplasm of transverse colonDvrtclos of lg int w/o perforation or abscess w/o bleeding [address]. [address], [address], [place], [place], [id number] , [place]. tel:[phone] Referring Provider: Konstantin Chou MD E, [address] [facility] [facility], [place], [address]. tel:[phone] Family History Family Member Type Diagnosis Age At Onset Sister Problem (finding) Alive and well Mother Problem (finding) Son Problem (finding) Alive and well Father Problem (finding) Mother Problem (finding) Leukemia (Cause Of Deat h) Brother Problem (finding) Alive and well Immunizations Vaccine Date Status Comments Respiratory syncytial virus (RSV), vaccine, recombinant, protein subunit RSV prefusion F, adjuvant reconstituted, 0.5 mL, preservative free administered Note: [facility] bi-direct ional interface ; Source: Other Registry SARS-COV-2 (COVID-19) vaccin e, mRNA, spike protein, LNP, preservative free, symone-sucrose, 30 mcg/0.3 mL dose administered Note: [facility] bi-direct ional interface ; Source: Other Registry tetanus toxoid, reduced diphtheria toxoid, and acellular pertussis vaccine, adsorbed administered Note: [facility] b i-directional interface ; Source: Other Registry influenza, high-dose seasona l, quadrivalent, 0.7mL dose, preservative free administered Note: [facility] bi-direct ional interface ; Source: Other Registry influenza, high-dose seasona l, quadrivalent, 0.7mL dose, preservative free administered Note: [facility] bi-direct ional interface ; Source: Other Registry SARS-COV-2 (COVID-19) vaccin e, mRNA, spike protein, LNP, bivalent, preservative free, 30 mcg/0.3 mL dose, symone-sucrose formulation administered Note: [facility] bi-direct ional interface ; Source: Other Registry SARS-COV-2 (COVID-19) vaccin e, mRNA, spike protein, LNP, preservative free, 30 mcg/0.3mL dose administered Note: [facility] bi-direct ional interface ; Source: Other Registry SARS-COV-2 (COVID-19) vaccin e, mRNA, spike protein, LNP, preservative free, 30 mcg/0.3mL dose administered Note: [facility] bi-direct ional interface ; Source: Other Registry influenza, seasonal vaccine, quadrivalent, adjuvanted, 0.5mL dose, preservative free administered Note: [facility] bi-di rectional interface ; Source: Other Registry SARS-COV-2 (COVID-19) vaccin e, mRNA, spike protein, LNP, preservative free, 30 mcg/0.3mL dose administered Note: [facility] bi-direct ional interface ; Source: Other Registry SARS-COV-2 (COVID-19) vaccin e, mRNA, spike protein, LNP, preservative free, 30 mcg/0.3mL dose administered Note: [facility] bi-direct ional interface ; Source: Other Registry influenza, seasonal vaccine, quadrivalent, adjuvanted, 0.5mL dose, preservative free administered Note: [facility] bi-di rectional interface ; Source: Other Registry zoster vaccine recombinant administered N ote: [facility] bi-directional interface ; Source: Other Registry zoster vaccine recombinant administered N ote: [facility] bi-directional interface ; Source: Other Registry Seasonal trivalent influenza vaccine, adjuvanted, preservative free administered Note: [facility] bi-direct ional interface ; Source: Other Registry Pneumovax administered Note: [facility] bi-d irectional interface ; Source: Other Registry Seasonal trivalent influenza vaccine, adjuvanted, preservative free administered Note: [facility] bi-direct ional interface ; Source: Other Registry Seasonal trivalent influenza vaccine, adjuvanted, preservative free administered Note: [facility] bi-direct ional interface ; Source: Other Registry Prevnar administered Note: [facility] bi-d irectional interface ; Source: Other Registry influenza, high dose seasona l, preservative-free administered Note: [facility] bi-direct ional interface ; Source: Other Registry Afluria Qd administered Note: [facility] bi-directional interface ; Source: Other Registry Influenza, seasonal, injecta ble, preservative free administered Note: [facility] bi-direct ional interface ; Source: Other Registry zoster vaccine, live administered Note: [facility] bi-directional interface ; Source: Other Registry Influenza, seasonal, injecta ble, preservative free administered Note: [facility] bi-direct ional interface ; Source: Other Registry tetanus toxoid, reduced diphtheria toxoid, and acellular pertussis vaccine, adsorbed administered Note: [facility] b i-directional interface ; Source: Other Registry Influenza, seasonal, injectable administe red Note: [facility] bi- directional interface ; Source: Other Registry Influenza, seasonal, injectable administe red Note: [facility] bi- directional interface ; Source: Other Registry Novel [id number], all formulations administered Note: [facility] bi-direct ional interface ; Source: Other Registry Influenza, seasonal, injecta ble, preservative free administered Note: [facility] bi-direct ional interface ; Source: Other Registry Pneumovax 23 administered Note: [facility] bi-d irectional interface ; Source: Other Registry Payers Payer name Insurance type Covered democrat ID Authoriza tion(s) No Information Social History Type Description Quantity Date Captured Comments Sex Male Smoking Status No Information Chief Complaint And Reason For Visit No Information Reason For Referral Reason For Referral No Information Plan Of Treatment Date Type Action Status Appointment Rishi Ellis BOOKED History Of Present Illness Encounter Date Complaint History Of Prese nt Illness No Information Functional Status Date Functional Assessmen t No Information Instructions Date Instruction Additional Infor mation Diverticulosis/Diverticulitis Re lated to Colorectal polyps Colon Polyps Related to Color ectal polyps Hemorrhoids Related to Color ectal polyps High Fiber Diet Related to Color ectal polyps Colon Cancer Prevention Related to Colorectal polyps Diverticulosis/Diverticulitis Re lated to Colorectal polyps Colon Polyps Related to Color ectal polyps High Fiber Diet Related to Color ectal polyps Colon Cancer Prevention Related to Colorectal polyps Assessments Type Assessment Date No Information Patient Care Teams Name Effective Dates (start - stop) Status Members No Information
--- NOTE | 2024-03-06 09:15 | MR_ITS ---
[address] [address] Phone:?[phone] Fax:?[phone] Referring Physician Information: Domingo Rizo M.D. [address] [place] [address] Phone:?[phone] Fax:[phone] Patient:Lavelle Ellis D.O.B:?1950 Sex:?Male Phone:?[phone] [facility] MRN:?[id number] Exam Date:?03/06/2024 EXAM: MR PROSTATE WITHOUT AND WITH CONTRAST CLINICAL INFORMATION: Elevated PSA. COMPARISON: None. TECHNICAL INFORMATION: Examination was performed on a 1.5T magnet. High- resolution T1 axial, T2 axial, T2 FSE sagittal and T2 FSE coronal images were obtained through the prostate gland and seminal vesicles. Diffusion images were obtained in the axial plane. 20 mL of Dotarem were injected with dynamic enhanced images of the prostate gland in the axial plane. T1 fat saturation sagittal and coronal images were obtained postinjection. Images were analyzed with 3-D postprocessing online under concurrent physician supervision using a separate AXADO workstation. INTERPRETATION: The prostate gland measures 6.5 x 6.2 x 5.6 cm (TV x AP x SI) for an estimated volume of 110 cc. Transitional and central zones: There is marked glandular and stromal hyperplasia with well encapsulated BPH nodules (PI-RADS 2). No focal CZ/TZ lesions concerning for clinically significant adenocarcinoma. Peripheral zones: No focal PZ lesions concerning for clinically significant adenocarcinoma (PI-RADS 1). Pelvis: No tika transcapsular disease. Neurovascular bundles and seminal vesicles appear intact. No pelvic lymphadenopathy or evident bone marrow disease. CONCLUSION: Marked prostatomegaly with stigmata of BPH. No suspicious (PI-RADS 3, 4, or 5) lesions identified. No tika transcapsular, mariama, or skeletal disease in the pelvis. PI-RADS Assessment Categories: Score 1 = very low; clinically significant disease highly unlikely Score 2 = low; clinically significant disease is unlikely Score 3 = intermediate; clinically significant disease is equivocal Score 4 = high; clinically significant disease is likely Score 5 = very high; clinically significant disease is highly likely Electronically signed on 03/06/2024 12:38:00 PM by Prasanth Kunz M.D.
== END 2024-03-06 08:47 | disposition home or self-care (01) ==
LOC: MRI 08:47
PROVIDERS: PCP Surgery; Visit Provider Urology
DX: R97.20 Elevated prostate specific antigen [PSA] (principal)
CPT/HCPCS: 72197; A9575

== ENCOUNTER 2024-03-11 12:45 | Emergency (ER) | payer MEDICARE, SELFPAY ==
[2024-03-11] VITALS (26 sets, daily range): BP systolic 130–146; BP diastolic 91–102; PULSE 88–113; RESP 16–18; TEMP 36.3; O2SAT 89–98; BMI 31.1
--- NOTE | 2024-03-11 12:59 | ED_ITS ---
HPI - Arrhythmia/Palpitations General Time Seen by Provider: 12:59 Date Seen: 03/11/24 Chief Complaint: Arrhythmia/Palpitations Stated Complaint: Afib per urgent care Time Seen by Provider: 03/11/24 12:47 Source: patient, family, RN notes reviewed and old records reviewed Mode of arrival: ambulatory Limitations: no limitations History of Present Illness HPI narrative: This 73-year-old male is referred from surgical center and subsequently urgent care in the [facility] GI center. He was there to have routine colonoscopy today. Sounds as if his blood pressure was low, he remembers a 95, EKG was done and he was found to be in atrial fibrillation with RVR on 1 of them at 103 beats per minute, the other was 99. PVCs were seen individually on each 1 of these EKGs, these outpatient EKGs were reviewed. He is unaware of any prior history of atrial fibrillation, is not feeling this. He had an MRI done outpatient recently but obviously no vitals were taken. He last saw his primary care doctor about 2 months ago. He is not feeling any shortness of breath, no chest pain, no palpitations, has no sense that his pulse is irregular, has not been having any limits in his activity or change in his baseline status. We did discuss the possibility of electrolyte changes with prepping for the colonoscopy. However, since patient has no idea how long he has been in this, he is not a candidate for cardioversion nor does he require it emergently. His blood pressure is good on arrival here. This was a normal routine screening colonoscopy per his report. He has a history of hay fever and seasonal allergies but denies asthma per se. He reportedly is on atenolol/chlorthalidone. We did discuss the need for rate control with this rhythm to prevent tachycardia induced cardiomyopathy as well as this being a risk for stroke. He at most maybe drinks a couple beers a week. Related Data Home Medications ?Medication ?Instructions ?Recorded ?Confirmed albuterol sulfate 90 mcg/actuation 1 - 2 puff inhalation Q4H PRN cough 07/08/23 07/10/23 aerosol inhaler allopurinol 100 mg tablet mg PO 07/08/23 atenolol 50 mg-chlorthalidone 25 1 tab PO DAILY 07/08/23 07/10/23 mg tablet atorvastatin 20 mg tablet 20 mg PO DAILY 07/08/23 07/10/23 colchicine (cardiac) 0.5 mg tablet 0.5 mg PO DAILY 07/08/23 07/08/23 losartan 50 mg tablet 50 mg PO DAILY 07/08/23 07/10/23 metformin 1,000 mg tablet 1,000 mg PO BID 07/08/23 07/10/23 tamsulosin 0.4 mg capsule 0.4 mg PO DAILY 07/08/23 07/10/23 Previous Rx's ?Medication ?Instructions ?Recorded apixaban 5 mg tablet (Eliquis) 5 mg PO BID #60 tabs 03/11/24 chlorthalidone 25 mg tablet 25 mg PO DAILY #30 tabs 03/11/24 metoprolol succinate 100 mg 100 mg PO DAILY #30 tabs 03/11/24 tablet,extended release 24 hr Allergies Allergy/AdvReac Type Severity Reaction Status Date / Time amoxicillin [From Augmentin] Allergy Hives Verified 07/10/23 10:30 clavulanic acid Allergy Hives Verified 07/10/23 10:30 [From Augmentin] indomethacin [From Indocin] Allergy Verified 07/10/23 10:30 naproxen Allergy Verified 07/10/23 10:30 lisinopril AdvReac Cough Verified 07/10/23 10:30 simvastatin AdvReac GERD Verified 07/10/23 10:30 Review of Systems Status of ROS: Reports: 6 or more systems reviewed and unremarkable except as noted in History and below [facility] Medical History Type 2 diabetes mellitus ?E11.9 - Type 2 diabetes mellitus without complications (ICD-10) Hyperlipemia ?E78.5 - Hyperlipidemia, unspecified (ICD-10) TEENA (obstructive sleep apnea) ?G47.33 - Obstructive sleep apnea (adult) (pediatric) (ICD-10) Social History Smoking Status: Former smoker Do you use any of these nicotine containing products: None How often do you have a drink containing alcohol: monthly or less Alcohol type: beer How many standard drinks containing alcohol do you have on a typical day: 1 or 2 How often do you have six or more drinks on one occasion: Never AUDIT-C Alcohol total score: 1 Non-prescribed substance use: denies use Caffeine: Yes (coffee) Exam Const: Vital Signs, click to edit/add: Vital Signs - 24 hr 03/11/24 12:59 03/11/24 13:04 03/11/24 13:15 Temperature 97.3 F L Pulse Rate 113 H 103 H Pulse Rate [Pulse Oximeter] 112 H Respiratory Rate 18 Blood Pressure Blood Pressure [Ri ght Upper Arm] 142/101 H Pulse Oximetry 98 96 96 Oxygen Delivery Me thod Room Air 03/11/24 13:30 03/11/24 13:44 03/11/24 13:45 Temperature Pulse Rate 105 H 100 101 H Pulse Rate [Pulse Oximeter] Respiratory Rate 16 Blood Pressure 137/102 H Blood Pressure [Ri ght Upper Arm] Pulse Oximetry 97 97 96 Oxygen Delivery Me thod 03/11/24 13:47 03/11/24 13:48 03/11/24 14:05 Temperature Pulse Rate 101 H 104 H 97 Pulse Rate [Pulse Oximeter] Respiratory Rate Blood Pressure 131/91 H Blood Pressure [Ri ght Upper Arm] Pulse Oximetry 95 95 97 Oxygen Delivery Me thod 03/11/24 14:06 03/11/24 14:15 03/11/24 14:17 Temperature Pulse Rate 105 H 95 99 Pulse Rate [Pulse Oximeter] Respiratory Rate Blood Pressure 140/99 H 135/101 H Blood Pressure [Ri ght Upper Arm] Pulse Oximetry 93 97 96 Oxygen Delivery Me thod 03/11/24 14:18 03/11/24 14:30 03/11/24 14:32 Temperature Pulse Rate 94 90 91 Pulse Rate [Pulse Oximeter] Respiratory Rate Blood Pressure 130/92 H Blood Pressure [Ri ght Upper Arm] Pulse Oximetry 96 96 96 Oxygen Delivery Me thod 03/11/24 14:45 03/11/24 14:47 03/11/24 15:01 Temperature Pulse Rate 91 105 H Pulse Rate [Pulse Oximeter] Respiratory Rate Blood Pressure 133/100 H Blood Pressure [Ri ght Upper Arm] Pulse Oximetry 96 94 Oxygen Delivery Me thod Rishi is a 73-year-old male that is alert, interactive, no apparent distress. He is conversive, able speak in complete sentences, sclera clear, conjugate gaze. Normal face. Neck is supple, no adenopathy, no thyromegaly masses or nodules come advance tension. Lungs are clear, good air entry, wheezing or crackles. CV is irregularly irregular, borderline fast. Do not hear any murmur, normal S1-S2, no S3-S4. Abdomen is soft, nondistended, nontender, no organomegaly. He has no lower extremity edema. Documenting provider has reviewed patient's vital signs: yes Course Course ED Course: Up patient will be on cardiac monitoring, pulse oximetry. Will get appropriate labs including electrolytes with magnesium. Will obtain a troponin. Will get a portable chest x-ray but doubt any significant cardiopulmonary changes. For will give him a dose of IV metoprolol, L of IV fluids over 2 hours. He is likely intravascularly dry and relative dehydration with having had a colonoscopy prep. He otherwise is asymptomatic, likely believe we will be able to discharge for further outpatient follow-up. May need to switch his atenolol chlorthalidone to metoprolol and chlorthalidone. We will see how he responds. Reevaluation(s) Time of Reevaluation #1: 16:58 Reevaluation #1: Patient walked in the ER briskly, heart rate went 99-108. At rest right now he is back down in the 80s. Patient had absolutely no symptoms when ambulating. He is on Tenoretic 50/25. We are going to give him another dose of metoprolol XL 50 mg prior to discharge, initiate Eliquis 5 mg before discharge. Will send a new prescriptions for him. Will place him on metoprolol XL 100 mg daily to try to capture rate control. He is going to need outpatient follow-up, an echo scheduled through his primary which is Dr. Crane. Cardioversion can be considered after appropriate interval of anticoagulation if felt appropriate by Cardiology. He is not a candidate for cardioversion today. At this time, thyroid is pending, he understands if there is any concern with this I will contact him. Vital Signs Vital signs: Initial Vital Signs Temperature 97.3 F L 03/11/24 12:59 Temperature Source Temporal Artery Scan 03/11/24 12:59 Pulse Rate 112 H 03/11/24 12:59 Respiratory Rate 18 03/11/24 12:59 Blood Pressure 142/101 H 03/11/24 12:59 Blood Pressure Mean 114 H 03/11/24 12:59 Pulse Oximetry 98 03/11/24 12:59 Oxygen Delivery Method Room Air 03/11/24 12:59 Vital Signs Temperature 97.3 F L 03/11/24 12:59 Pulse Rate 112 H 03/11/24 12:59 Respiratory Rate 18 03/11/24 12:59 Blood Pressure 142/101 H 03/11/24 12:59 Pulse Oximetry 98 03/11/24 12:59 Oxygen Delivery Method Room Air 03/11/24 12:59 Temperature 97.3 F L 03/11/24 12:59 Pulse Rate 105 H 03/11/24 14:47 Respiratory Rate 16 03/11/24 13:30 Blood Pressure 133/100 H 03/11/24 15:01 Pulse Oximetry 94 03/11/24 14:47 Oxygen Delivery Method Room Air 03/11/24 12:59 Medications Administered Medications: Discontinued Medications Generic Name Dose Route Start Last Admin Trade Name Freq PRN Reason Stop Dose Admin Sodium Chloride 1,000 mls @ 500 mls/hr 03/11/24 13:07 03/11/24 16:00 0.9 % Sodium Chloride 1000 Ml IV 03/11/24 15:06 Infused .Q2H CYNTHIA Infusion Metoprolol Tartrate 5 mg 03/11/24 13:06 03/11/24 13:34 Metoprolol Tartrate 1 Mg/Ml Inj IVP 03/11/24 13:07 5 mg ONCE ONE Administration Metoprolol Tartrate 25 mg 03/11/24 14:11 03/11/24 14:48 Metoprolol Tartrate 25 Mg Tablet PO 03/11/24 14:12 25 mg ONCE ONE Administration MDM - Arrhythmia/Palpitations Lab Data Attestation: I reviewed the patient's lab results. Labs: Lab Results 03/11/24 03/11/24 Range/Units 01:46 13:32 WBC 8.32 (4.50-11.00) K/uL RBC 4.98 (4.30-5.90) m/uL Hgb 15.3 (13.5-17.5) gm/dL Hct 44.6 (37.0-53.0) % MCV 90 (80-100) fL MCH 31 (26-34) pg MCHC 34 (32-36) gm/dL RDW Coeff of [place] 13.1 (11.5-15.5) % Plt Count 165 (140-440) K/uL Neut % (Auto) 68.3 (42.0-72.0) % Lymph % (Auto) 19.5 L (20-44) % [place] % (Auto) 6.4 (0.0-11.0) % Eos % (Auto) 5.5 (0.0-7.0) % Baso % (Auto) 0.2 (0.0-3.0) % Neut # (Auto) 5.68 (1.7-7.0) K/uL Lymph # (Auto) 1.60 (0.90-2.90) K/uL [place] # (Auto) 0.50 (0.00-0.90) K/UL Eos # (Auto) 0.46 (0.00-0.50) K/uL Baso # (Auto) 0.02 (0.00-0.30) K/uL Abs Immat Gran (auto) 0.01 (0.00-0.30) K/uL Imm/Tot Granulo (auto) 0.1 % INR 1.05 (0.91-1.10) APTT 36 H (23-33) Seconds Sodium 130 L (135-149) mmol/L Potassium 3.8 (3.6-5.1) mmol/L Chloride 96 (96-114) mmol/L Carbon Dioxide 23 (20-32) mmol/L Anion Gap 11 (7-15) mEq/L BUN 17 (7-30) mg/dL Creatinine 0.8 (0.5-1.5) mg/dL Estimated Creat Clear 67.93 Estimated GFR 93 ml/min Glucose 180 H (60-115) mg/dL Calcium 9.0 (8.4-10.6) mg/dL Magnesium 2.0 (1.5-2.6) mg/dL Total Bilirubin 2.3 H (0.1-1.5) mg/dL AST 33 (12-35) U/L ALT 24 (4-50) U/L Alkaline Phosphatase 43 (40-150) U/L Troponin I < 0.01 L (0.01-0.04) ng/mL NT-Pro-B Natriuret Pep 1020 pg/mL Total Protein 7.8 (6.0-8.3) g/dL Albumin 4.8 (3.3-5.0) g/dL Imaging Data Chest x-ray: Attestation: I have reviewed the pertinent imaging results. Radiologist's impression: Patient: RISHI SCHAFER Facility:?[facility] Patient ID:?[id number] Site Patient ID:?[id number]. Site :?[id number] Study:?XRay-CHEST PORTABLE 1 V-03/11/2024 1:35:50 PM Ordering Physician:Honey Ramirez Final Report: INDICATION: afib w/ rvr. TECHNIQUE: Chest 1 view. COMPARISON: 04/21/2012. FINDINGS: Cardiovascular and mediastinum: Cardiomediastinal silhouette is within normal limits. Lungs and pleural spaces: Mild interstitial opacities. No evidence of pleural effusion. No pneumothorax identified. Bones and soft tissues: Unremarkable. IMPRESSION: Mild interstitial opacities, likely due to mild edema. Otherwise, no significant change. Dictated by Iron Archibald MD @ 03/11/2024 2:29:59 PM (Electronic Signature) ECG Data Attestation: I personally reviewed and interpreted this ECG as follows: (Atrial fibrillation with rapid ventricular response, PVC seen. Rate is 109 beats per minute. No definitive ischemia noted.) ECG interpretation date: 03/11/24 ECG interpretation time: 13:03 Prior ECG tracings: available for review Discharge Plan Discharge Clinical Impression: Atrial fibrillation Qualifiers: Atrial fibrillation type: unspecified Qualified Code(s): I48.91 - Unspecified atrial fibrillation Patient Disposition: Home, Self-Care Condition: Stable Instructions: A-fib (Atrial Fibrillation) (ED), Blood Thinners (ED) Additional Instructions: Take Eliquis 5 mg twice a day, next due tomorrow morning. Stop your Tenoretic (atenolol-chlorthalidone). New prescription for chlorthalidone alone 25 mg daily is sent in. We will initiate metoprolol XL 100mg daily, next due to take this tomorrow morning or as soon as you get it from the pharmacy. Need to schedule a recheck in clinic this week with your primary, they will need to schedule an outpatient cardiac echo. In the meantime, should you notice shortness of breath, difficulty breathing, sense of fast heart rate or any concerning chest symptoms such as chest pain, need to be re-evaluated. Activity Level: Activity as Tolerated Discharge Diet: Heart Healthy (2 gm sodium, low fat) Prescriptions: New metoprolol succinate 100 mg tablet extended release 24 hr 100 mg PO DAILY Qty: 30 0RF chlorthalidone 25 mg tablet 25 mg PO DAILY Qty: 30 0RF Eliquis 5 mg tablet 5 mg PO BID Qty: 60 0RF No Action atorvastatin 20 mg tablet 20 mg PO DAILY atenolol-chlorthalidone 50-25 mg tablet 1 tab PO DAILY allopurinol 100 mg tablet PO albuterol sulfate 90 mcg/actuation HFA aerosol inhaler 1 - 2 puff INHALATION Q4H PRN (Reason: cough) colchicine (cardiac) 0.5 mg tablet 0.5 mg PO DAILY losartan 50 mg tablet 50 mg PO DAILY tamsulosin 0.4 mg capsule 0.4 mg PO DAILY metformin 1,000 mg tablet 1,000 mg PO BID Follow Up/Referrals: Leobardo Crane MD [Primary Care Provider] - Stand Alone Forms: [facility] Info Instructions
--- NOTE | 2024-03-11 13:06 | CRLHL7_ITS ---
For Patients: As a result of the Cures Act, medical imaging exams and procedure reports are released immediately into your electronic medical record. You may view this report before your referring provider. If you have questions, please contact your health care provider. INDICATION: afib w/ rvr. TECHNIQUE: Chest 1 view. COMPARISON: 04/21/2012. FINDINGS: Cardiovascular and mediastinum: Cardiomediastinal silhouette is within normal limits. Lungs and pleural spaces: Mild interstitial opacities. No evidence of pleural effusion. No pneumothorax identified. Bones and soft tissues: Unremarkable. IMPRESSION: Mild interstitial opacities, likely due to mild edema. Otherwise, no significant change. Dictated by Iron Archibald MD @ 03/11/2024 2:29:59 PM (Electronically Signed)
[2024-03-11] MEDS: METOPROLOL TARTRATE 1 MG/ML inj 5 MG IVP (13:34)
[2024-03-11] MEDS: 0.9 % SODIUM CHLORIDE 1000 ml 1,000 ML 500 ML IV (13:35)
--- OUTSIDE RECORDS SUMMARY | 2024-03-11 13:57 | XMS_ITS | Clinical Summary ---
Author Organization [employer] [facility] Address [place], [place] [address] Care Team Providers Care Sales Project Manager Name Role Phone Leobardo Crane MD Primary Care Provider [phone] Allergies Active Allergy Reactions Criticality Noted Date [...] TWICE DAILY 200 Each 3 01/15/2024 Active Lpqto-[id number]-[id number]-EPA-Fish Oil (Fish OiL) 1,000 mg (120 mg-180 mg) cap Take by mouth. Active Active Problems Problem Noted Date Diagnosed [...] Encounters Date Type Department Care Team Description 03/11/2024 11:35 AM CDT Office Visit [facility] [id number] [place] [address] [id number] Dleia Parada, VLAD Atrial Fibrillation (Referred by [facility] for A fib, colonoscopy that was scheduled this morning cancelled d/t EKG interpretation. Patient denies any dizziness or chest pain, vitally stable. ) 03/11/2024 Travel 03/06/2024 Orders Only [facility] Scanner 1 scan: (1-Ord) [facility], PELVIS WO/W CON, 03/06/2024 01/20/2024 Orders Only [facility] Scanner 1 scan: (1-Ord) INCOMING RECORDS-DIABETIC EYE, [facility], 01/20/2024 01/14/2024 Refill [facility] [address] [facility] [place] [address] Leobardo Crane MD Refill Request (Contour Next Test Strips) 01/07/2024 8:50 AM CDT Office Visit [facility] [address] [facility] [place] [address] Leobardo Crane MD Lab; Medicare ANNUAL (subsequent) Visit (73 year old male); Diabetes 01/07/2024 Telephone [facility] [address] [facility] [place] [address] Tan Martínez MD Pre Procedure 01/07/2024 Travel 12/16/2023 Refill [facility] [address] [facility] [place] [address] Leobardo Crane MD Refill Request (Atorvastatin) from Last 3 Months Immunizations Name Administration Dates Next Due COVID-19 vaccine ([employer] 30mcg/0.3mL) PETER MUSE 11/25/2020,11/04/2020 Influenza A (H1N1), [...] at 62. Diabetes Father Heart Disease Father [place] at 76, Blood Disease Mother Blood Cancer, [...] drink = 0.6 oz pur e alcohol) 2x a week, 1-2 beers PHQ-2 Answer Date [...] Sign Reading Time Taken Comments Blood Pressure 139/83 03/11/2024 11:49 AM CDT Pulse 108 03/11/2024 11:49 AM CDT Temperature 36.5 ??C (97.7 ??F) 03/11/2024 11:49 AM C DT Respiratory Rate 18 03/11/2024 11:49 AM CDT Oxygen Saturation 99% 03/11/2024 11:49 AM CDT Inhaled Oxygen Concentration - - Weight 98.7 kg (217 lb 9.6 oz) 03/11/2024 11:49 AM CDT Height 177.4 cm (5' 9.84) 01/07/2024 9:03 AM CD T Body Mass Index 31.36 01/07/2024 9:03 AM CDT Plan of Treatment Upcoming Encounters Date Type Department Care Team (Late st Contact Info) Description 04/09/2024 9:00 AM CDT Office Visit [facility] [address] [place] [address] Leobardo Crane MD [address] [place] [address] Health Maintenance Due Date Last Done Comments [...] 05/27/2023, 08/22/2012 Medical Devices Implanted Type Area R D Internship Device Identifier Shelf Expiration Date Model / Serial / Lot Stent Sinus 8mm Propel Contour Bioabsorb - [id number] Implanted:Qty: 2 on 01/04/2021 by Lucinda Rae MD at [facility] Bilateral : Nose [employer] 05/31/2022 [id number] / / [id number] Procedures Procedure Name Priority Date/Time Associated Diagnosis Comments SCAN-MRI INTERPRETATION 03/06/2024 12:00 AM CDT SCAN-EYE EXAM 01/20/2024 12:00 AM CDT URIC ACID Add On 01/07/2024 8:47 AM CDT Gouty arthropathy PSA TOTAL (DIAGNOSTIC) Routine 8:47 AM CDT Elevated PSA BASIC METABOLIC [...] disease) (HC) US ABD AORTA SCREENING Routine 2 8:29 AM CDT Screening for AAA (aortic abdominal aneurysm) SCAN-COLONOSCOPY 01/02/2019 8:00 AM CDT ANTI HCV Routine 10/05/2009 8:04 AM UNDERCOLLAR BASTER Elevated LFT's Fatty Liver from Last 3 Months or Most Recently Relevant to Health Maintenance Results * SCAN-MRI INTERPRETATION (03/06/2024 12:00 AM CDT) Anatomical Region Laterality Modality Other Scanner OTHER * SCAN-EYE EXAM (01/20/2024 12:00 AM CDT) Scanner OTHER * URIC ACID (01/07/2024 8:47 AM CDT) URIC ACID 6.3 3.4 - 7.0 mg/dL 01/07/2024 7:02 PM CDT [facility] Blood BLOOD SPECIMEN / Unknown Venipuncture / Unknown 01/07/2024 8:47 AM CDT 01/07/2024 8:47 AM CDT Leobardo Crane MD CHEMISTRY Performing Organization Address [facility] Co de Phone Number [facility] [address] * (ABNORMAL) PSA TOTAL (DIAGNOSTIC) (01/07/2024 8:47 AM CDT) PSA TOTAL (DIAGNOSTIC) 6.59(H) <4.00 ng/mL 01/07/2024 7:40 PM CDT [facility] Blood BLOOD SPECIMEN / Unknown Venipuncture / Unknown 01/07/2024 8:47 AM CDT 01/07/2024 8:47 AM CDT Narrative [facility] - 01/07/2024 7:40 PM CDT The test [...] be used interchangeably. Leobardo Crane MD CHEMISTRY Performing Organization Address City/[facility]/ZIP Co de Phone Number [facility] [address] [place] [address], * (ABNORMAL) HEMOGLOBIN A1C MONITORING (POCT) (01/07/2024 8:47 AM CDT) [facility] HEMOGLOBIN A1C MONITORING (POCT) 7.8(H) <=6.4 % 01/07/2024 8:57 AM CDT [facility] Blood BLOOD SPECIMEN / Unknown Venipuncture / Unknown 01/07/2024 8:47 AM CDT 01/07/2024 8:47 AM CDT Narrative [facility] - 01/07/2024 8:57 AM CDT ? (<=6.9%) [...] Anemias, Splenectomy ? Leobardo Crane MD CHEMISTRY [facility] [address] [place] [address], [place] [phone] * (ABNORMAL) BASIC METABOLIC PANEL (01/07/2024 8:47 AM CDT) [facility] SODIUM 137 136 - 145 mmol/L 01/07/2024 7:02 PM CDT [facility] POTASSIUM 4.4 3.5 - 5.1 mmol/L 01/07/2024 7:02 PM CDT [facility] CHLORIDE 98 98 - 107 mmol/L 01/07/2024 7:02 PM CDT [facility] CO2,TOTAL 27 22 - 29 mmol/L 01/07/2024 7:02 PM CDT [facility] ANION GAP 12 5 - 18 01/07/2024 7:02 PM CDT [facility] GLUCOSE 250(H) 70 - 99 mg/dL 01/07/2024 7:02 PM CDT [facility] CALCIUM 9.6 8.8 - 10.2 mg/dL 01/07/2024 7:02 PM CDT [facility] BUN 25(H) 8 - 23 mg/dL 01/07/2024 7:02 PM CDT [facility] CREATININE 1.06 0.70 - 1.20 mg/dL 01/07/2024 7:02 PM T [facility] BUN/CREAT RATIO 24(H) 10 - 20 7:02 PM T [facility] eGFR 74(L) >90 mL/min/1.7 3m2 01/07/2024 7:02 PM T [facility] Comment:As of 2021, eG [...] 8:47 AM CDT Leobardo Crane MD CHEMISTRY [facility] [address] [place] [address], * (ABNORMAL) LIPID PANEL W REFLEX MEASURED LDL (06/18/2023 3:34 PM CDT) CHOLESTEROL,TOTAL 104 100 - 199 mg/dL 06/19/2023 7:44 AM CDT [facility] Comment: Cholesterol, Total Reference Ranges Desirable <200 mg/dL Borderline 200-239 mg/dL High >=240 mg/dL TRIGLYCERIDES 155(H) <150 mg/dL 06/19/2023 7:44 AM CDT [facility] HDL CHOLESTEROL 30(L) >40 mg/dL 7:44 AM CDT [facility] NON-HDL CHOLESTEROL 74 <145 mg/dl 06/19/2023 7:44 AM CDT [facility] CHOL/HDL RATIO 3.47 <4.50 06/19/2023 7:44 AM CDT [facility] LDL CHOLESTEROL 43 <=130 mg/dL 06/19/2023 7:44 AM CDT [facility] VLDL CHOLESTEROL 31(H) <=30 mg/dL 06/19/2023 7:44 AM CDT [facility] PROVIDER ORDERED STATUS RANDOM 06/19/2023 7:44 AM CDT [facility] Blood BLOOD SPECIMEN / Unknown Venipuncture / Unknown 06/18/2023 3:34 PM CDT 06/18/2023 3:45 PM CDT Leobardo Crane MD CHEMISTRY [facility] [address] [place] [address], [place] * US ABD AORTA SCREENING [[id number]] (12/14/2021 8:29 AM CDT) Anatomical Region Laterality Modality Abdomen, AORTA Ultrasound 12/14/2021 3:16 PM CDT Impressions 12/14/2021 3:16 PM CDT No evidence of abdominal aortic aneurysm. Dictated by Chino Thomson MD @ Dec 14 2021 ??3:16PM (Electronically Signed) ?? Narrative 12/14/2021 3:16 PM CDT For Patients: ??As a result of the Century Cures Act, medical imaging exams and procedure [...] Rosas MD - 01/02/2019 7:02 AM CDT [facility] [address] [place] [address], [address], [place] [address] Patient Name: Rishi Ellis Gender: Male Exam Date: 01/02/2019 Visit Number: [id number] Age: 68 Years Date of : 1950 Attending MD: Rosario Rosas MD Medical Record#: [id number] Procedure: Colonoscopy Indications: Previous adenomatous polyp(s) Referring MD: Konstantin Chou MD Primary MD: Konstantin Chou MD Medications: Admitting Medications: 0.9% Normal Saline at TK Intra Procedure Medications: Patient received monitored anesthesia [...] OTHER * ANTI HCV (10/05/2009 8:04 AM UNDERCOLLAR BASTER) ANTI HCV Non-reacti ve [facility] Blood specimen (specimen) BLOOD SPECIMEN / Unknown 10/05/2009 8:04 AM UNDERCOLLAR BASTER 10/05/2009 7:52 AM UNDERCOLLAR BASTER Tan Martínez MD SEND OUTS [facility] INTERNAL ZIP [id number] [address] [address] from Last 3 Months or Most Recently Relevant to Health Maintenance Advance Directives Documents on File Type Date Recorded 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
[2024-03-11 14:23] LABS: Albumin* 4.8 g/dL (3.3-5.0); Chloride* 96 mmol/L (96-114); Sodium* 130 mmol/L (135-149)
[2024-03-11 14:24] LABS: Potassium* 3.8 mmol/L (3.6-5.1)
[2024-03-11 14:26] LABS: Alanine Aminotransferase* 24 U/L (4-50); Alkaline Phosphatase* 43 U/L (40-150); Anion Gap 11 mEq/L (7-15); Aspartate Amino Transferase* 33 U/L (12-35); Bilirubin Total* 2.3 mg/dL (0.1-1.5); Blood Urea Nitrogen* 17 mg/dL (7-30); Carbon Dioxide* 23 mmol/L (20-32); Creatinine* 0.8 mg/dL (0.5-1.5); Est. Creatinine Clearance* 67.93; Estimated Glomerular Filt Rate 93 ml/min; Glucose* 180 mg/dL (60-115); Total Protein* 7.8 g/dL (6.0-8.3)
[2024-03-11 14:27] LABS: Basophils Absolute Auto 0.02 K/uL (0.00-0.30); Basophils Percent Auto 0.2 % (0.0-3.0); Eosinophils Absolute Auto 0.46 K/uL (0.00-0.50); Eosinophils Percent Auto 5.5 % (0.0-7.0); Hematocrit 44.6 % (37.0-53.0); Hemoglobin* 15.3 gm/dL (13.5-17.5); Immature Granulocytes Abs Auto 0.01 K/uL (0.00-0.30); Immature Granulocytes Pct Auto 0.1 %; Lymphocytes Percent Auto 19.5 % (20-44); Mean Corpuscular HGB Conc 34 gm/dL (32-36); Mean Corpuscular Hemoglobin 31 pg (26-34); Mean Corpuscular Volume 90 fL (80-100); Monocytes Percent Auto 6.4 % (0.0-11.0); Neutrophils Absolute Auto 5.68 K/uL (1.7-7.0); Neutrophils Percent Auto 68.3 % (42.0-72.0); Platelet Count* 165 K/uL (140-440); RDW Coefficient of Variation % 13.1 % (11.5-15.5); Red Blood Count 4.98 m/uL (4.30-5.90); White Blood Count* 8.32 K/uL (4.50-11.00)
[2024-03-11 14:30] LABS: INR 1.05 (0.91-1.10); Prothrombin Time 14.4 Seconds
[2024-03-11 14:37] LABS: Slide Review Reflex No
[2024-03-11] MEDS: METOPROLOL TARTRATE 25 MG TABLET PO (14:48)
[2024-03-11 14:55] LABS: NT Pro B Type NatriureticPept* 1020 pg/mL; Troponin I* < 0.01 ng/mL (0.01-0.04)
[2024-03-11 15:11] LABS: Partial Thromboplastin Time* 36 Seconds (23-33)
[2024-03-11] MEDS: METOPROLOL SUCCINATE (XL) 50 MG TAB PO (17:24)
[2024-03-11] MEDS: APIXABAN 5 MG TABLET PO (17:25)
== END 2024-03-11 17:24 | disposition home or self-care (01) ==
PROVIDERS: Emergency Provider Family Medicine; PCP Surgery
DX: I48.91 Unspecified atrial fibrillation (principal)
CPT/HCPCS: 36415; 71045; 80053; 83735; 83880; 84443; 84484; 85025; 85610; 85730; 99284; A9270; J7030